=== PATIENT | male | born 1950 | race Asian ===

== ENCOUNTER 2019-03-10 15:18 | Outpatient (CLI) | payer BC ==
--- NOTE | 2019-03-10 16:32 | MRI ---
MR of the right shoulder without contrast INDICATION: Right shoulder pain. Right shoulder pain for 4 to 5 months. TECHNIQUE: Sagittal T1, axial and coronal PD fat sat, sagittal and coronal T2 fat sat images were obt ained of the right shoulder. COMPARISON: None FINDINGS: Rotator cuff: Intact. Glenohumeral joint: Articular cartilage is intact. Glenoid labrum: Intact Biceps tendon and biceps anchor: Intact and located. Acromion clavicular joint: There is moderate AC joint osteoarthrosis with mild joint hypertrophy. The re is a type II acromion. No os acromiale is evident. Subacromial subdeltoid space: No appreciable fluid. Axillary region: No lymphadenopathy. Surrounding shoulder musculature: Normal. No evidence of atrophy or strain. IMPRESSION: 1. Moderate AC joint osteoarthrosis. 2. The rotator cuff is intact. 3. Visualized aspects of the glenoid labrum appear within normal limits.
== END 2019-03-10 15:19 | disposition home or self-care (01) ==
LOC: BICMRI 15:18
PROVIDERS: ATTEND Orthopaedic Surgery
DX: M25.511 Pain in right shoulder (principal); M19.011 Primary osteoarthritis, right shoulder

== ENCOUNTER 2021-02-26 13:12 | Observation (INO) | payer BC ==
[2021-02-26 15:32] LABS: #Lymphocytes 1.9 thou/uL (1.20-3.40); #Monocytes 0.5 thou/uL (0.11-0.59); %Basophils 0.4 % (0.0-1.0); %Eosinophils 0.4 % (0.0-10.0); %Lymphocytes 25.5 % (21.0-51.0); %Monocytes 6.9 % (0.0-10.0); %Neutrophils 66.7 % (42.0-75.0); Hemoglobin 14.1 g/dL (14.0-18.0); Mean Corpuscular HGB CONC 34.6 g/dL (32.0-36.0); Mean Corpuscular Hemoglobin 33.9 pg (27.0-31.0); Mean Platelet Volume 6.9 fL (7.4-10.4); Platelet Count 219 thou/uL (130-400); RBC Distribution Width 11.5 % (11.5-14.5); Red Blood Cell (RBC) Count 4.17 mill/uL (4.70-6.10); White Blood Cell (WBC) Count 7.5 thou/uL (4.8-10.8)
[2021-02-26 15:56] LABS: ALT (SGPT) 15 U/L (8-55); AST (SGOT) 18 U/L (5-34); Albumin 4.7 g/dL (3.4-4.8); Alkaline Phosphatase 57 U/L (40-110); Anion Gap 12 mmol/L (10-20); BUN (Urea Nitrogen) 15 mg/dL (8.4-25.7); Bilirubin, Total 0.5 mg/dL (0.2-1.2); Calc. Creatinine Clearance 0 mL/min (70-130); Calcium 9.6 mg/dL (7.8-10.44); Carbon Dioxide 27 mmol/L (23-31); Chloride 102 mmol/L (98-107); Globulin 2.9 g/dL (2.4-3.5); Glucose 140 mg/dL (80-115); Lipase 61 U/L (8-78); Potassium 4.2 mmol/L (3.5-5.1); Protein, Total 7.6 g/dL (5.8-8.1); Sodium 137 mmol/L (136-145)
[2021-02-26 16:53] LABS: Bilirubin Negative (Negative); Blood, Urine Negative (Negative); Clarity Clear (Clear); Glucose, Urine (Dipstick) 30 mg/dL (Negative); Ketone, Urine Negative (Negative); Leukocyte Negative Leu/uL (Negative); Nitrite Negative (Negative); Protein, Urine (Dipstick) Negative (Neg-Trace); Specific Gravity, Urine 1.009 (1.002-1.036); Urobilinogen Normal mg/dL (Less than 2); pH, Urine 5.5 (5.0-9.0)
[2021-02-26] MEDS ORDERED: Aspirin 325 MG TAB ONE (17:51)
[2021-02-26] MEDS ORDERED: Aspirin Chewable 81 MG TAB ONE (17:52)
[2021-02-26 21:28] VITALS: BMI 23.2
[2021-02-26] MEDS ORDERED: HumaLOG 300 UNITS/3 ML VIAL SC PRN (23:01)
[2021-02-26] MEDS ORDERED: Dextrose 5% in Water 1,000 ML IV PRN (23:01)
[2021-02-26] MEDS ORDERED: Dextrose 50% Abboject 50 ML SYRINGE SLOW IVP PRN (23:01)
[2021-02-26] MEDS ORDERED: Meclizine HCl 12.5 MG TAB PO PRN (23:02)
[2021-02-27 03:28] LABS: SARS-CoV-2 NAA Rapid Test Not Detected (NotDetected)
[2021-02-27 05:22] LABS: Cardiac Risk 4.5 (Less than 4.5); Magnesium 2.1 mg/dL (1.6-2.6)
[2021-02-27] MEDS: HumaLOG 300 UNITS/3 ML VIAL SC PRN ×2 (06:40→12:28)
[2021-02-27] MEDS ORDERED: Sodium Chloride 0.9% 1,000 ML IV SCH (07:30)
[2021-02-27 08:54] LABS: Troponin I 0.015 ng/mL (< 0.028)
[2021-02-27] MEDS ORDERED: Famotidine 20 MG TAB PO SCH (09:00)
[2021-02-27] MEDS ORDERED: Aspirin 81 mg Enteric Coated Tablet PO SCH (09:00)
[2021-02-27 15:58] VITALS: BP 136/65; TEMP 97.6
[2021-02-27] MEDS ORDERED: Atorvastatin Calcium 40 MG TAB PO SCH (21:00)
[2021-02-27] MEDS ORDERED: metFORMIN 500 MG TAB PO SCH (21:00)
[2021-02-28] MEDS ORDERED: Lisinopril 5 MG TAB PO SCH (09:00)
== END 2021-02-27 18:42 | disposition home or self-care (01) ==
LOC: ERS 13:12 → ER/OP 13:12 → 2SE 18:24
PROVIDERS: ADMIT Family Medicine; ATTEND Internal Medicine
DX: R42 Dizziness and giddiness (principal); I10 Essential (primary) hypertension; E11.9 Type 2 diabetes mellitus without complications; I08.3 Combined rheumatic disorders of mitral, aortic and tricuspid valves; Z79.84 Long term (current) use of oral hypoglycemic drugs; Z79.899 Other long term (current) drug therapy; Z88.6 Allergy status to analgesic agent; Z20.822 Contact with and (suspected) exposure to COVID-19
CPT/HCPCS: 0240U; 36415; 36416; 70450; 70551; 80053; 80061; 81003; 83690; 83735; 84484; 85025; 87635; 93005; 93306; 93880; 94760; G0378; J1815; U0003; U0005